=== PATIENT | female | born 1995 | race Caucasian/White ===

== ENCOUNTER 2017-10-01 21:18 | Emergency (ER) | payer MEDICAID ==
[2017-10-01 21:22] VITALS: BP 150/94
--- NOTE | 2017-10-01 21:51 | EDM.PDOC ---
ED HPI GENERAL MEDICAL PROBLEM - General Chief Complaint: Skin Complaint Stated Complaint: SKIN COMPLAINT Time Seen by Provider: 10/01/17 21:40 Source of Information: Reports: Patient History Limitations: Reports: No Limitations - History of Present Illness INITIAL COMMENTS - FREE TEXT/NARRATIVE: Patient presents to the ER with complaints of a rash in her groin and on her buttocks. States she celebrated her 22st birthday on Friday and noted on Friday that she had lesions on her buttocks and on her left thigh. The partner has reported that he has a painless sore on his penis but has not been tested. She states the area on her thigh now has opened and is very sore while the other areas are painless. She hasn't really noted any sores in her vaginal area , states they did use a condom. She was actually tested for STDs on the and they were negative. Patient has never had any STDs that she is aware of. 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 Does have a child at home, no rashes noted on the child. Onset: Gradual Duration: Day(s): Location: Reports: Pelvis Quality: Reports: Burning (to open spot on her left thigh) Severity: Mild Associated Symptoms: Denies: Cough, Fever/Chills, Malaise, Nausea/Vomiting, Shortness of Breath Groin Pain Score (Numeric/FACES): 6 - Related Data Allergies Allergy/AdvReac Type Severity Reaction Status Date / Time No Known Allergies Allergy Verified 10/01/17 21:22 Home Meds: Home Meds . 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 OB/BYN History: IRREGULAR MENSES Musculoskeletal History: Reports: Back Pain, Chronic Neurological History: Reports: None Psychiatric History: Reports: Anxiety, Mood Swings Endocrine/Metabolic History: Reports: Obesity/BMI 30+ Hematologic History: Reports: None Immunologic History: Reports: None Oncologic (Cancer) History: Reports: None Dermatologic History: Reports: None Other Dermatologic History: [employer]; MULTIPLE TATOOS - Infectious Disease History Infectious Disease History: Reports: None - Past Surgical History Head Surgeries/Procedures: Reports: None GI Surgical History: Reports: None Female Surgical History: Reports: None Social & Family History - Family History Family Medical History: Noncontributory HEENT: Reports: None Cardiac: Reports: IN Respiratory: Reports: None GI: Reports: None : Reports: None Musculoskeletal: Reports: None Neurological: Reports: None Psychiatric: Reports: None Endocrine/Metabolic: Reports: None Hematologic: Reports: None Immunologic: Reports: None Dermatologic: Reports: None Oncologic: Reports: None - Tobacco Use Smoking Status *Q: Current Every Day Smoker Years of Tobacco use: 3 Packs/Tins Daily: 0.5 - Caffeine Use Caffeine Use: Reports: Coffee, Soda Other Caffeine Use: rare ED ROS GENERAL - Review of Systems Review Of Systems: See Below Constitutional: Denies: Fever, Chills, Malaise HEENT: Reports: No Symptoms Respiratory: Reports: No Symptoms Cardiovascular: Reports: No Symptoms Endocrine: Reports: No Symptoms GI/Abdominal: Reports: No Symptoms : Reports: No Symptoms Musculoskeletal: Reports: No Symptoms Skin: Reports: Rash, Lesions Neurological: Reports: No Symptoms ED EXAM, SKIN/RASH Exam: See Below Exam Limited By: No Limitations General Appearance: Alert, WD/WN, No Apparent Distress Throat/Mouth: Normal Inspection, Normal Oropharynx Head: Normocephalic Respiratory/Chest: Lungs Clear Cardiovascular: Regular Rate, Rhythm (Female) Exam: Other (Patient has a 1 cm circular open area to her left thigh with yellowish tone to the center of it. No obvious drainage noted. Did obtain a bacterial and viral culture from this area. Has multiple scattered scabbed over areas on her buttocks, no drainage. These lesions are nontender, the one to her left thigh is tender with palpation.) Neurological: Alert, Oriented Course - Vital Signs Last Recorded V/S: Last Vital Signs Temp 98.6 F 10/01/17 21:19 Pulse 97 10/01/17 21:19 Resp 16 10/01/17 21:19 BP 150/94 H 10/01/17 21:19 Pulse Ox 97 10/01/17 21:19 - Orders/Labs/Meds Orders: Active Orders 24 hr Category Date Time Status CULTURE WOUND [RM] Stat Lab 10/01/17 22:37 Received RPR [REF] Routine Lab 10/01/17 22:27 Received VIRAL CULTURE, GENERAL Stat Lab 10/01/17 22:37 Received Meds: Medications Discontinued Medications Generic Name Dose Route Start Last Admin Trade Name Walter PRN Reason Stop Dose Admin Ceftriaxone Sodium 1 gm 10/01/17 22:16 10/01/17 22:27 Rocephin IM 10/01/17 22:17 1 gm ONETIME ONE Administration Lidocaine HCl 20 ml 10/01/17 22:16 10/01/17 22:27 Xylocaine 1% INJECT 10/01/17 22:17 2.1 ml ONETIME ONE Administration Departure - Departure Time of Disposition: 22:38 Disposition: Home, Self-Care 01 Condition: Fair Clinical Impression: Rash - Discharge Information Referrals: Provider,Unknown [Primary Care Provider] - Forms: ED Department Discharge Additional Instructions: 1. Keep areas clean and dry 2. No intercourse until clearing of the rash 3. We will call you with results of the testing done tonight 4. Amoxicillin 875 mg twice a day for 10 days 5. Follow up for any ongoing concerns. - My Orders Last 24 Hours: My Active Orders 10/01/17 22:27 RPR [REF] Routine 10/01/17 22:37 CULTURE WOUND [RM] Stat VIRAL CULTURE, GENERAL Stat - Assessment/Plan Last 24 Hours: My Active Orders 10/01/17 22:27 RPR [REF] Routine 10/01/17 22:37 CULTURE WOUND [RM] Stat VIRAL CULTURE, GENERAL Stat
[2017-10-01] MEDS: Lidocaine 1% 20 ML MDV INJECT ONE (22:27)
[2017-10-01] MEDS: cefTRIAXone 1 GM Vial IM ONE (22:27)
== END 2017-10-01 22:55 | disposition home or self-care (01) ==
LOC: CC.ED 21:18
DX: R21 Rash and other nonspecific skin eruption (principal); K21.9 Gastro-esophageal reflux disease without esophagitis; E66.9 Obesity, unspecified; F17.210 Nicotine dependence, cigarettes, uncomplicated; Z68.30 Body mass index [BMI] 30.0-30.9, adult
CPT/HCPCS: 36415; 86592; 87070; 87252; 87529; 96372; 99283; J0696

== ENCOUNTER 2017-11-09 15:24 | Emergency (ER) | payer MEDICAID ==
[2017-11-09 15:31] VITALS: BP 135/84
--- NOTE | 2017-11-09 15:36 | EDM.PDOC ---
ED HPI GENERAL MEDICAL PROBLEM - General Chief Complaint: Lower Extremity Injury/Pain Stated Complaint: RIGHT HAMSTRING PAIN/INJURY Time Seen by Provider: 11/09/17 15:26 Source of Information: Reports: Patient History Limitations: Reports: No Limitations - History of Present Illness INITIAL COMMENTS - FREE TEXT/NARRATIVE: This patient is a 22 year old female that presents to the ER. Patient reports that she was drunk early Friday morning and was running. She reports injuring her left posterior thigh and knee posterior. Patient reports pain to the area. Patient denies any other injury. Patient denies fall. Pulses +2, cap refill <2 sec, sensory intact. Motor intact with pain, neurovascular intact. Onset Date: 11/08/17 Location: Reports: Lower Extremity, Right Severity: Mild Improves with: Reports: Immobilization Worsens with: Reports: Movement Associated Symptoms: Reports: No Other Symptoms. Denies: Confusion, Chest Pain , Cough, cough w sputum, Diaphoresis, Fever/Chills, Headaches, Loss of Appetite , Malaise, Nausea/Vomiting, Rash, Seizure, Shortness of Breath, Syncope, Weakness Right Upper Posterior Leg Pain Score (Numeric/FACES): 6 - Related Data Allergies Allergy/AdvReac Type Severity Reaction Status Date / Time No Known Allergies Allergy Verified 11/09/17 15:27 Home Meds: Home Meds . 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: Psychiatric History: Reports: Depression - Past Surgical History HEENT Surgical History: Reports: Other (See Below) Other HEENT Surgeries/Procedures: wisdom teeth removed Review of Systems - Review of Systems Review Of Systems: See Below Constitutional: Reports: No Symptoms Eyes: Reports: No Symptoms Ears: Reports: No Symptoms Nose: Reports: No Symptoms Mouth/Throat: Reports: No Symptoms Respiratory: Reports: No Symptoms Cardiovascular: Reports: No Symptoms GI/Abdominal: Reports: No Symptoms Genitourinary: Reports: No Symptoms Musculoskeletal: Reports: Muscle Pain (Right posterior knee, right posterior thigh. ) Skin: Reports: No Symptoms Neurological: Reports: No Symptoms Psychiatric: Reports: No Symptoms ED EXAM, GENERAL - Physical Exam Exam: See Below Exam Limited By: No Limitations General Appearance: Alert, WD/WN, No Apparent Distress Respiratory/Chest: No Respiratory Distress, Lungs Clear, Normal Breath Sounds, No Accessory Muscle Use Cardiovascular: Normal Peripheral Pulses, Regular Rate, Rhythm, No Edema, No Gallop, No JVD, No Murmur, No Rub Peripheral Pulses: 2+: Popliteal (L), Popliteal (R), Posterior Tibial (L), Posterior Tibial (R), Dorsalis Pedis (L), Dorsalis Pedis (R) Extremities: Normal Inspection, Normal Range of Motion (with pain of flexion of the right knee. This creates pain to the right posterior quad), No Pedal Edema, Normal Capillary Refill Neurological: Alert, Oriented Psychiatric: Normal Affect, Normal Mood Skin Exam: Warm, Dry, Intact, Normal Color, No Rash Course - Vital Signs Last Recorded V/S: Last Vital Signs Temp 96.8 F 11/09/17 15:28 Pulse 89 11/09/17 15:28 Resp 20 11/09/17 15:28 BP 135/84 11/09/17 15:28 Pulse Ox 96 11/09/17 15:28 - Orders/Labs/Meds Orders: Active Orders 24 hr Category Date Time Status Knee 3V Rt [CR] Stat Exams 11/09/17 15:50 Ordered Knee Min 4V Rt [CR] Stat Exams 11/09/17 15:31 Stop Req - Radiology Interpretation Free Text/Narrative:: Knee Xray: No fracture, no dislocation, no effusion. - Re-Assessments/Exams Free Text/Narrative Re-Assessment/Exam: 11/09/17 16:05 Reviewed [facility] records from patient ER visit yesterday. No Xrays were taken there due to refusal. Departure - Departure Time of Disposition: 16:06 Disposition: Home, Self-Care 01 Condition: Good Clinical Impression: Strain of quadriceps muscle Qualifiers: Encounter type: initial encounter Laterality: right Qualified Code(s): S76.111A - Strain of right quadriceps muscle, fascia and tendon, initial encounter - Discharge Information Instructions: Quadriceps Strain Forms: ED Department Discharge Additional Instructions: Followup with your primary care provider if pain continues after 10-14 days Return to the ER for worsening of condition or any emergent concerns Rest Ice Elevate Scott Wrap as needed Crutches as needed IbuProfen as needed for pain - My Orders Last 24 Hours: My Active Orders 11/09/17 15:31 Knee Min 4V Rt [CR] Stat 11/09/17 15:50 Knee 3V Rt [CR] Stat - Assessment/Plan Last 24 Hours: My Active Orders 11/09/17 15:31 Knee Min 4V Rt [CR] Stat 11/09/17 15:50 Knee 3V Rt [CR] Stat Plan: PLEASE SEE RN NOTE FOR PFSH.
== END 2017-11-09 16:18 | disposition home or self-care (01) ==
LOC: MERGE 15:24 → CC.ED 15:24
DX: S76.111A Strain of right quadriceps muscle, fascia and tendon, initial encounter (principal); X58.XXXA Exposure to other specified factors, initial encounter
CPT/HCPCS: 73562-RT; 99283